=== PATIENT | female | born 1945 ===

== ENCOUNTER 2020-09-26 09:45 | Inpatient (IN) | payer OTHER ==
[~2020-09-26] VITALS: Ht 149.9 cm; Wt 56.2 kg
[2020-09-26] MEDS ORDERED: TOPROL XL25 M1 PO (11:33)
[2020-09-26] MEDS ORDERED: FOLIC ACID0.8 M1 PO (11:34)
[2020-09-26] MEDS ORDERED: CRESTOR5 MG PO (11:34)
[2020-09-27] MEDS ORDERED: ST. JOSEPH ASPI81 M2 (08:31)
== END 2020-09-29 16:18 | disposition home or self-care (01) | DRG 743 ==
LOC: O/R 09-27 05:10 → OB/GYN 09-27 05:10 → SURH 09-27 09:45 → OB/GYN 09-27 13:28
PROVIDERS: ADMIT Specialist; ATTEND Specialist
PROC: 0UT20ZZ Resection of Bilateral Ovaries, Open Approach (ICD-10-PCS; 2020-09-27)
PROC: 0UT70ZZ Resection of Bilateral Fallopian Tubes, Open Approach (ICD-10-PCS; 2020-09-27)
PROC: 0UT90ZZ Resection of Uterus, Open Approach (ICD-10-PCS; principal; 2020-09-27 15:30)
DX: D25.1 Intramural leiomyoma of uterus (principal); N80.0 Endometriosis of uterus; N72 Inflammatory disease of cervix uteri; N83.292 Other ovarian cyst, left side; N83.291 Other ovarian cyst, right side; N83.8 Other noninflammatory disorders of ovary, fallopian tube and broad ligament; I10 Essential (primary) hypertension; R19.00 Intra-abdominal and pelvic swelling, mass and lump, unspecified site